=== PATIENT | female | born 1965 | race African-American/Black ===

== ENCOUNTER 2017-04-08 20:39 | Emergency (ER) | payer OTHER ==
[2017-04-08 21:01] VITALS: BMI 19.2
[2017-04-08] MEDS ORDERED: PANTOPRAZOLE SODIUM 40 MG in SODIUM CHLORIDE 100 ML IVPB ONE (21:48)
[2017-04-08] MEDS ORDERED: SODIUM CHLORIDE 1,000 ML IV STA (21:48)
[2017-04-08] MEDS ORDERED: METOCLOPRAMIDE HCL INJECTION 10 MG/2 ML VIAL IVPB ONE (21:48)
[2017-04-08] MEDS ORDERED: morphine CARPU-JECT 4 MG/1 ML DISP.SYRIN IVPUSH ONE (21:48)
[2017-04-08] MEDS ORDERED: ONDANSETRON 4 MG/2 ML VIAL ONE (21:54)
[2017-04-08 22:35] LABS: URINE APPEARANCE SLCLOUDY; URINE BILIRUBIN NEGATIVE (NEGATIVE); URINE BLOOD 1+ (NEGATIVE); URINE COLOR YELLOW; URINE GLUCOSE (UA) NEGATIVE (NEGATIVE); URINE KETONE 2+ (NEGATIVE); URINE LEUK ESTERASE NEGATIVE (NEGATIVE); URINE NITRITE NEGATIVE (NEGATIVE); URINE PROTEIN NEGATIVE (NEGATIVE)
[2017-04-08] MEDS ORDERED: morphine CARPU-JECT 4 MG/1 ML DISP.SYRIN ONE (22:40)
[2017-04-08 22:41] LABS: BASOPHIL 0.6 % (0-2.0); EOSINOPHIL 2.7 % (0-4.5); MCHC 33.1 g/dl (32.0-36.0); MEAN CELL VOLUME 84.8 fl (80-96); MEAN PLT VOLUME 9.3 fl (7.5-11.1); NEUTROPHILS 59.4 % (42.8-82.8); PLATELET COUNT 232 K/MM3 (134-434); RDW 13.5 % (11.6-15.6)
[2017-04-08] MEDS ORDERED: METOCLOPRAMIDE HCL INJECTION 10 MG/2 ML VIAL ONE (22:41)
[2017-04-08] MEDS ORDERED: PANTOPRAZOLE SODIUM 100 ML IVPB ONE (22:41)
[2017-04-08 22:52] LABS: URINE BACTERIA RARE /hpf (NONE SEEN); URINE MUCUS RARE; URINE RBC 15 /hpf (0-3); URINE WBC 1 /hpf (3-5)
[2017-04-08 23:03] LABS: AMYLASE 45 U/L (25-115); ANION GAP 11 (8-16); CALCIUM 8.8 mg/dL (8.5-10.1); CO2 26 mmol/L (21-32); CREATININE 0.7 mg/dL (0.55-1.02); GLUCOSE,RANDOM 96 mg/dL (74-106)
--- NOTE | 2017-04-09 00:02 | PDOC ---
"History of Present Illness - General Chief Complaint: Hemoptysis Stated Complaint: ABD PAIN History Source: Patient Exam Limitations: No Limitations - History of Present Illness Travel History: No Initial Comments: 04/08/17 23:56 51yo Female patient w/ PmHx: Gastric Ulcers, H. Pylori current on pain management presents to ED c/o Epigastric pain, and hematemesis x 1 bout starting yesterday. Patient states she was recently prescribed Fentanyl patch by pain management to control chronic abdominal pains. Patient states abdominal pain began yesterday and while using bathroom she experienced hematemesis. She reportedly used her Vicodin, Bentyl and tried GI cocktail with no relief in symptoms. Patient reports associated fatigue. She denies any other complaints at this time. Timing/Duration: reports: constant Quality: reports: moderate Abdominal Pain Onset Location: reports: epigastric Pain Radiation: reports: no radiation Activities at Onset: reports: no specific activity Treatment Prior to Arrive: improves with: analgesics Aggravating Factors: improves with: None. worse with: Defecation, Eating, Emotional upset, Exertion, [place], Movement, Voiding, Change in position Alleviating Factors: worse with: None, Belching, Shallow Breathing, Defecation, Eating, Holding Breath, Passing Gas, Change in Position, Rest, Voiding, Vomiting Past History - Travel Traveled outside of the country in the last 30 days: No Close contact w/someone who was outside of country & ill: No - Past Medical History Allergies/Adverse Reactions: Allergies Allergy/AdvReac Type Severity Reaction Status Date / Time No Known Allergies Allergy Verified 04/08/17 20:51 Home Medications: Ambulatory Orders Albuterol Sulfate Inhaler - [Ventolin HFA Inhaler -] 1 inh IN PRN PRN #1 inh Montelukast Na [Singulair -] 10 mg PO HS #30 tablet 06/25/14 Prednisone [Deltasone -] 40 mg PO DAILY #6 tablet 06/25/14 Salmeterol/Fluticasone [Advair 250Mcg/50Mcg -] 1 inh IH BID #1 inh 06/25/14 Asthma: Yes - Psycho/Social/Smoking Cessation Hx Anxiety: No Suicidal Ideation: No Smoking History: Current every day smoker Have you smoked in the past 12 months: Yes Number of Cigarettes Smoked Daily: 10 Information on smoking cessation initiated: No 'Breaking Loose' booklet given: 06/25/14 Hx Alcohol Use: No Drug/Substance Use Hx: No Substance Use Type: None Abd/GI Specific PMHX - Complaint Specific PMHX Colitis: No Diverticulitis: No Gall Bladder Disease: No GERD: No Hepatitis: No Irritable Bowel Synd (IBS): No Pancreatitis: No GI Ulcer Disease: No Review of Systems - Review of Systems Able to Perform ROS?: Yes Is the patient limited [place] proficient: No Constitutional: No: Chills, Fever Respiratory: No: Cough, Shortness of Breath, Stridor, Wheezing Cardiac (ROS): No: Chest Pain, Syncope, Chest Tightness ABD/GI: Yes: Diarrhea, Nausea, Vomiting, Abdominal cramping. No: Abdominal Distended, Abd. Pain w/ defecation, Constipated, Poor Appetite, Poor Fluid Intake, Rectal Bleeding, Tarry Stools : No: Burning, Dysuria, Discharge, Frequency, Flank Pain, Hematuria, Pain, Urgency Musculoskeletal: No: Back Pain Integumentary: No: Rash All Other Systems: Reviewed and Negative *Physical Exam - Vital Signs Last Vital Signs Temp Pulse Resp BP Pulse Ox 98.1 F 60 18 148/88 99 04/08/17 20:52 04/08/17 20:52 04/08/17 20:52 04/08/17 20:52 04/08/17 20:52 - Physical Exam General Appearance: Yes: Nourished, Appropriately Dressed. No: Apparent Distress, Mild Distress, Moderate Distress, Severe Distress Neck: positive: Trachea midline, Supple. negative: Stridor, Lymphadenopathy (R) , Lymphadenopathy (L), Tender lateral, Tender midline Respiratory/Chest: positive: Lungs Clear, Normal Breath Sounds. negative: Chest Tender, Respiratory Distress, Accessory Muscle Use, Rhonchi, Stridor, Wheezing, Hyperresonant Cardiovascular: positive: Regular Rhythm, Regular Rate Gastrointestinal/Abdominal: positive: Tender, Soft, Increased Bowel Sounds, Rebound, Tenderness (Epigastric ). negative: Organomegaly, Protuberent, Distended, Guarding Musculoskeletal: positive: Normal Inspection. negative: CVA Tenderness, Decreased Range of Motion, Vertebral Tenderness Extremity: positive: Normal Capillary Refill, Normal Inspection, Normal Range of Motion. negative: Pedal Edema, Swelling, Calf Tenderness, Erythema, Inflammation Integumentary: positive: Normal Color, Dry, Warm Neurologic: positive: zipper repairer II-XII NML intact, Fully Oriented, Alert, Normal Mood/ Affect, Normal Response, Motor Strength 12/04 ED Treatment Course - LABORATORY CBC & Chemistry Diagram: 04/08/17 22:19 04/08/17 22:19 - ADDITIONAL ORDERS Additional order review: Laboratory Results 04/08/17 04/08/17 22:19 22:19 Sodium 142 Potassium 4.1 Chloride 105 Carbon Dioxide 26 D Anion Gap 11 BUN 14 Creatinine 0.7 Random Glucose 96 D Calcium 8.8 Total Amylase 45 Lipase 117 Urine Color Yellow Urine Appearance Slcloudy Urine pH 7.0 Urine Protein Negative Urine Glucose (UA) Negative Urine Ketones 2+ H Urine Blood 1+ H Urine Nitrite Negative Urine Bilirubin Negative Urine Urobilinogen 2.0 H Ur Leukocyte Esterase Negative Urine RBC 15 Urine WBC 1 Ur Epithelial Cells Rare Urine Bacteria Rare Urine Mucus Rare Urine HCG, Qual Negative 04/08/17 22:19 RBC 4.70 MCV 84.8 MCHC 33.1 RDW 13.5 MPV 9.3 Neutrophils % 59.4 D Lymphocytes % 31.5 D Monocytes % 5.8 Eosinophils % 2.7 D Basophils % 0.6 - RADIOLOGY Radiology Studies Ordered: Category Date Time Status ABDOMEN & PELVIS CT W/O CONTR [CT] Stat CT Scan 04/08/17 23:20 Ordered - Medications Given in the ED: ED Medications Discontinued Medications Generic Name Dose Route Start Last Admin Trade Name Lazq PRN Reason Stop Dose Admin Pantoprazole Sodium 40 mg/ 100 mls @ 200 mls/hr 04/08/17 21:48 04/08/17 23:00 Sodium Chloride IVPB 04/08/17 22:17 200 mls/hr ONCE ONE Administration Sodium Chloride 1,000 mls @ 1,000 mls/hr 04/08/17 21:48 04/08/17 22:31 Normal Saline - IV 04/08/17 22:47 1,000 mls/hr ASDIR STA Administration Metoclopramide HCl 10 mg 04/08/17 21:48 04/08/17 23:01 Reglan Injection - IVPB 04/08/17 21:49 10 mg ONCE ONE Administration Morphine Sulfate 4 mg 04/08/17 21:48 04/08/17 23:00 Morphine Injection - IVPUSH 04/08/17 21:49 4 mg ONCE ONE Administration Progress Note - Progress Note Progress Note: Search Terms: Anu Moise, 1965 Search Date: 04/09/2017 01:59:40 AM The Drug Utilization Report below displays all of the controlled substance prescriptions, if any, that your patient has filled in the last twelve months. The information displayed on this report is compiled from pharmacy submissions to the Department, and accurately reflects the information as submitted by the pharmacies. This report was requested by: Berto Mancilla | Reference #: [id number] Others' Prescriptions Patient Name: Anu Moise Date: 1965 Address: [address] [place] [address] [place] [address] Sex: Female Rx Written Rx Dispensed Drug Quantity Days Supply Prescriber Name 03/08/2017 03/09/2017 zolpidem tartrate 5 mg tablet 30 30 [place], [facility] 03/08/2017 03/09/2017 hydrocodone-acetaminophen 10-325 tablet 90 30 [facility], [facility] 02/08/2017 02/08/2017 zolpidem tartrate 5 mg tablet 30 30 [place], [facility] 02/08/2017 02/08/2017 hydrocodone-acetaminophen 10-325 tablet 90 30 [place], [facility] 01/06/2017 01/14/2017 dronabinol 2.5 mg capsule 60 30 [place], [facility] 01/06/2017 01/08/2017 zolpidem tartrate 5 mg tablet 30 30 [place], [facility] 01/06/2017 01/08/2017 hydrocodone-acetaminophen 10-325 tablet 90 30 [place], [facility] 12/09/2016 12/09/2016 zolpidem tartrate 5 mg tablet 30 30 [place], [facility] 12/09/2016 12/09/2016 hydrocodone-acetaminophen 10-325 tablet 90 30 [place], [facility] 11/10/2016 11/10/2016 zolpidem tartrate 5 mg tablet 30 30 [place], [facility] 11/10/2016 11/10/2016 hydrocodone-acetaminophen 10-325 tablet 90 30 [place], [facility] 10/12/2016 10/16/2016 dronabinol 2.5 mg capsule 60 30 [place], [facility] 10/12/2016 10/12/2016 zolpidem tartrate 5 mg tablet 30 30 [place], [facility] 10/12/2016 10/12/2016 hydrocodone-acetaminophen 7.5-325 tab 90 30 [facility], [facility] 09/14/2016 09/14/2016 zolpidem tartrate 5 mg tablet 30 30 [facility], [facility] 09/14/2016 09/14/2016 hydrocodone-acetaminophen 7.5-325 tab 90 30 [facility], [facility] 08/17/2016 09/05/2016 dronabinol 2.5 mg capsule 60 30 [place], Cy 08/17/2016 08/17/2016 hydrocodone-acetaminophen 7.5-325 tab 90 30 [place], Cy 07/29/2016 07/29/2016 vicodin es 7.5-300 mg tablet 15 3 Shiv Sena 06/23/2016 06/24/2016 hydrocodone-acetaminophen 7.5-325 tab 60 30 Ward Baez MD 05/26/2016 05/26/2016 hydrocodone-acetaminophen 7.5-325 tab 60 30 Fátima Hernandez MD 04/18/2016 04/20/2016 vicodin es 7.5-300 mg tablet 60 30 Omsin Melvin Patient Name: Anu Moise Date: 1965 Address: [address] [place] [address] Sex: Female Rx Written Rx Dispensed Drug Quantity Days Supply Prescriber Name 07/17/2016 07/17/2016 tramadol hcl 50 mg tablet 10 5 Meera Douglass M 05/21/2016 05/21/2016 tramadol hcl 50 mg tablet 14 7 Lion Gage *DC/Admit/Observation/Transfer Diagnosis at time of Disposition: Hepatic cyst Abdominal pain Qualifiers: Abdominal location: epigastric Qualified Code(s): R10.13 - Epigastric pain - Discharge Dispostion Disposition: HOME Condition at time of disposition: Improved Admit: No - Referrals Referrals: Harry Bo [Primary Care Provider] - Sanket Au MD [Staff Physician] - - Patient Instructions Printed Discharge Instructions: DI for Abdominal Pain-Adult Additional Instructions: Follow up with Dr. Au (Gastroenterology) next week for further evaluation or follow up with your own [employer]. Continue your current medications as prescribed. Return if worsening of symptom or any other concerns for further evaluation. Also, follow up with your primary care provider. Print Language: VINCENTIAN - Post Discharge Activity Work/School Note: Back to Work"
[2017-04-09 01:59] VITALS: BP 130/71; PULSE 58; TEMP 98.3
== END 2017-04-09 02:26 | disposition home or self-care (01) ==
LOC: JER 20:39
PROC: 3E0337Z Introduction of Electrolytic and Water Balance Substance into Peripheral Vein, Percutaneous Approach (ICD-10-PCS; principal; 2017-04-08)
PROC: 3E033GC Introduction of Other Therapeutic Substance into Peripheral Vein, Percutaneous Approach (ICD-10-PCS; 2017-04-08)
PROC: 3E033GC Introduction of Other Therapeutic Substance into Peripheral Vein, Percutaneous Approach (ICD-10-PCS; 2017-04-08)
PROC: 3E033NZ Introduction of Analgesics, Hypnotics, Sedatives into Peripheral Vein, Percutaneous Approach (ICD-10-PCS; 2017-04-08)
DX: K76.89 Other specified diseases of liver (principal); R10.13 Epigastric pain; Z87.19 Personal history of other diseases of the digestive system
CPT/HCPCS: 36415; 74176-TC; 80048; 81003; 81015; 82150; 83690; 84703; 85025; 99282-25